=== PATIENT | female | born 1995 | race Two or more races ===

== ENCOUNTER 2018-03-22 18:25 | Emergency (ER) | payer OTHER ==
[~2018-03-22] VITALS: Ht 149.9 cm; Wt 90.3 kg
[~2018-03-22 18:25] MED LIST: TRAMADOL HCL50 MG PO; TUSSIONEX PENNKI5 ML PO; ZITHROMAX TRI-500 MG PO
== END 2018-03-22 22:43 | disposition home or self-care (01) ==
LOC: ER 18:25
DX: N92.0 Excessive and frequent menstruation with regular cycle (principal)

== ENCOUNTER 2021-08-28 07:00 | Inpatient (IN) | payer OTHER ==
[~2021-08-28] VITALS: Ht 154.9 cm; Wt 94.3 kg
[2021-09-02] MEDS ORDERED: FOLIC ACID20 MG (23:24)
== END 2021-09-04 13:16 | disposition home or self-care (01) | DRG 807 ==
LOC: LDR 09-02 05:07 → OB/GYN 09-02 18:33 → SURH 09-07 14:30
PROVIDERS: ADMIT Specialist; ATTEND Specialist
PROC: 10E0XZZ Delivery of Products of Conception, External Approach (ICD-10-PCS; principal; 2021-09-02)
PROC: 4A1HXCZ Monitoring of Products of Conception, Cardiac Rate, External Approach (ICD-10-PCS; 2021-09-02)
PROC: 0HQ9XZZ Repair Perineum Skin, External Approach (ICD-10-PCS; 2021-09-02)
DX: O70.0 First degree perineal laceration during delivery (principal); Z37.0 Single live birth; Z3A.39 39 weeks gestation of pregnancy; Z20.822 Contact with and (suspected) exposure to COVID-19

== ENCOUNTER 2023-07-02 08:30 | Emergency (ER) | payer OTHER ==
[~2023-07-02] VITALS: Ht 154.9 cm; Wt 99.8 kg
[~2023-07-02 08:30] MED LIST changes: +FOLIC ACID20 MG
== END 2023-07-02 12:18 | disposition home or self-care (01) ==
LOC: ER 08:30
DX: R50.9 Fever, unspecified (principal); B34.9 Viral infection, unspecified; Z20.822 Contact with and (suspected) exposure to COVID-19

== ENCOUNTER 2023-10-31 19:00 | Emergency (ER) | payer OTHER ==
[~2023-10-31] VITALS: Ht 154.9 cm; Wt 94.3 kg
[2023-10-31] MEDS ORDERED: LIDOCAINE HCL 100 MG/10ML VIAL IJ ONE (20:45)
[2023-10-31] MEDS ORDERED: TETANUS & DIPHTHERIA TOX,ADULT 0.5 ML VIAL IM ONE (22:00)
== END 2023-10-31 22:16 | disposition home or self-care (01) ==
LOC: ER 19:00
DX: S01.81XA Laceration without foreign body of other part of head, initial encounter (principal); W19.XXXA Unspecified fall, initial encounter; Y93.89 Activity, other specified; Y92.89 Other specified places as the place of occurrence of the external cause; Y99.8 Other external cause status